=== PATIENT | male | born 1955 | race Caucasian/White ===

== ENCOUNTER 2017-12-13 12:08 | Emergency (ER) | payer MEDICARE ==
[~2017-12-13] VITALS: Ht 185.4 cm; Wt 68.2 kg
[~2017-12-13 12:08] MED LIST: ASPIRIN325 MG PO; HYDROCODONE-APA1 TAB PO; LIPITOR20 MG PO; SOMA350 MG PO
[2017-12-13 12:23] VITALS: Ht 185.4 cm; Wt 68.2 kg
[2017-12-13 12:35] LABS: APPEARANCE CLEAR (CLEAR); BILIRUBIN NEGATIVE (NEGATIVE); COLOR YELLOW (YELLOW); GLUCOSE NEGATIVE (NEGATIVE); KETONE NEGATIVE (NEGATIVE); NITRITE NEGATIVE (NEGATIVE); PROTEIN NEGATIVE (NEGATIVE); UROBILINOGEN NORMAL (NORMAL)
[2017-12-13 13:18] LABS: BASOPHILS 0.2 % (0-2); EOSINOPHILS 1.9 % (0-7); HEMATOCRIT 48.8 % (42.0-54.0); HEMOGLOBIN 17.2 g/dL (13.5-17.5); IMMATURE GRANULOCYTES 0.2 % (0-5); LYMPHOCYTES 44.1 % (15-50); MCH 29.8 pg (26.0-34.0); MCHC 35.2 g/dL (31.0-37.0); MCV 84.6 fL (80.0-100.0); MEAN PLATELET VOLUME 10.1 fL (7.4-10.4); MONOCYTES 13.9 % (2-11); NEUTROPHILS 39.7 % (40-80); PLATELET COUNT 194 10x3/uL (130-400); RBC 5.77 10x6/uL (4.20-6.10); RDW 13.5 % (11.5-14.5); WBC 12.3 10x3/uL (4.8-10.8)
[2017-12-13 13:32] LABS: ALBUMIN 3.8 g/dL (3.4-5.0); ANION GAP 12.1 mmol/L (8-16); BILIRUBIN - TOTAL 0.71 mg/dL (0.2-1.3); CALCIUM 9.2 mg/dL (8.5-10.1); CARBON DIOXIDE 24.3 mmol/L (21.0-32.0); CREATININE - SERUM 1.3 mg/dL (0.6-1.3); POTASSIUM - SERUM 4.4 mmol/L (3.5-5.1); PROTEIN - SERUM 7.5 g/dL (6.4-8.2)
[2017-12-13] MEDS ORDERED: NORCO 10-325 TA1 TAB PO (15:54)
[2017-12-13] MEDS ORDERED: ZOFRAN ODT4 MG/UDTAB PO (15:54)
[2017-12-13 16:00] VITALS: BP 123/63
== END 2017-12-13 16:01 | disposition home or self-care (01) ==
LOC: D.ER 12:08
PROVIDERS: Emergency Medicine
DX: A08.4 Viral intestinal infection, unspecified (principal); Z86.73 Personal history of transient ischemic attack (TIA), and cerebral infarction without residual deficits

== ENCOUNTER 2018-02-26 09:01 | Inpatient (IN) | payer MEDICARE ==
[~2018-02-26] VITALS: Ht 185.4 cm; Wt 70.3 kg
--- NOTE | ~2018-02-26 | MORECARE ---
CASE MANAGEMENT DISCHARGE SUMMARY PATIENT: CHARY FOSTER UNIT: [id number] ADM DATE: 02/26/18 AGE: 62 : 59 SEX: M ROOM/BED: D.2234 AUTHOR: MARYAN NICHOLE PHYSICIAN: REFERRING PHYSICIAN: JOSE MOON MD DATE OF SERVICE: 02/26/18 Discharge Plan Patient Name: CHARY FOSTER [facility] [facility] 1955 Planned Disposition: Anticipated Discharge Date: Discharge Date: Expected LOS: Initial Reviewer: [email or web address] Initial Review Date: 02/26/2018 Generated: 02/26/18 12:00 pm DCPIA - Discharge Planning Initial Assessment Updated by [email or web address]: Enriqueta Ivey on 02/26/18 11:00 am * Is the patient Alert and Oriented? Yes * PCP NONE * Pharmacy NONE * Preadmission Environment Home with Family * ADLs Independent * Equipment Cane Nebulizer Oxygen * Other Equipment STATES GETS O2 FROM [facility] * List name and contact numbers for known caregivers / representatives who currently or will assist patient after discharge: GILBERTO FOSTER, MOTHER IN LAW, DOESN'T KNOW NUMBER, CM FOUND IN CHART * Community resources currently utilized None * Has this patient been hospitalized within the prior 30 days at any hospital? No Patient Name: CHARY FOSTER Page [id number] at 1100 All edits/amendments must be made on the electronic document DICTATION DATE: 02/26/18 1100 STENCIL CUTTER MACHINE: KEVIN 02/26/18 1100 RPT#: [id number] DC DATE: STATUS: ADM IN [facility] [address] [place] [address] END OF REPORT
--- NOTE | ~2018-02-26 | MORECARE ---
CASE MANAGEMENT DISCHARGE SUMMARY PATIENT: CHARY FOSTER UNIT: [id number] ADM DATE: 02/26/18 AGE: 62 : 59 SEX: M ROOM/BED: D.2234 AUTHOR: MARYAN NICHOLE PHYSICIAN: REFERRING PHYSICIAN: JOSE MOON MD DATE OF SERVICE: 02/26/18 Discharge Plan Patient Name: CHARY FOSTER Facility: [facility]:[place] : 1955 Planned Disposition: Anticipated Discharge Date: Discharge Date: Expected LOS: Initial Reviewer: [email or web address] Initial Review Date: 02/26/2018 Generated: 02/26/18 12:10 pm DCP- Discharge Planning Updated by [email or web address]: Enriqueta Ivey on 02/26/18 10:[address] Patient Name: CHARY FOSTER Admission Status: ER Accout number: [id number] Admission Date: 02-26-2018 : 1955 Admission Diagnosis: Attending: JOSE MOON Current LOS: 1 Anticipated DC Date: Planned Disposition: Primary Insurance: [facility] MEDICARE SOLUTIONS Discharge Planning Comments: CM SPOKE WITH PATIENT ABOUT DC PLANNING/NEEDS. STATES PLANS TO DC TO HOME WHEN DISCHARGED. STATES DOESN'T KNOW OF ANY NEEDS YET AND WAS INDEPENDANT WITH ADL'S. STATES USES A CANE SOMETIMES. CM WILL FOLLOW AND ASSIST NEEDED WITH DC PLANNING/NEEDS. Sisal Operator: Enriqueta Ivey DCPIA - Discharge Planning Initial Assessment Updated by [email or web address]: Enriqueta Ivey on 02/26/18 11:00 am * Is the patient Alert and Oriented? Yes * PCP NONE * Pharmacy NONE * Preadmission Environment Home with Family * ADLs Independent * Equipment Cane Nebulizer Oxygen * Other Equipment STATES GETS O2 FROM [facility] * List name and contact numbers for known caregivers / representatives who currently or will assist patient after discharge: GILBERTO FOSTER, MOTHER IN LAW, DOESN'T KNOW NUMBER, CM FOUND IN CHART * Community resources currently utilized None * Has this patient been hospitalized within the prior 30 days at any hospital? No Last DP export: 02/26/18 10:00 a Patient Name: CHARY FOSTER Page [id number] at 1110 All edits/amendments must be made on the electronic document DICTATION DATE: 02/26/181108 MACHINE PULLER AND LASTER: KEVIN 02/26/181108 RPT#: [id number] DC DATE: STATUS: ADM IN [facility] [address] [place] [address] END OF REPORT
--- NOTE | ~2018-02-26 | MORECARE ---
CASE MANAGEMENT DISCHARGE SUMMARY PATIENT: CHARY FOSTER UNIT: [id number] ADM DATE: 02/26/18 AGE: 62 : 59 SEX: M ROOM/BED: D.2234 AUTHOR: MARYAN NICHOLE PHYSICIAN: REFERRING PHYSICIAN: JOSE MOON MD DATE OF SERVICE: 03/02/18 Discharge Plan Patient Name: CHARY FOSTER [facility]:[place] : 1955 Planned Disposition: Anticipated Discharge Date: Discharge Date: 02/28/2018 Expected LOS: 0 Initial Reviewer: [email or web address] Initial Review Date: 02/26/2018 Generated: 03/02/18 10:03 am DCP- Discharge Planning Updated by [email or web address]: Enriqueta Ivey on 02/26/18 10:[address] Patient Name: CHARY FOSTER Admission Status: ER Accout number: [id number] Admission Date: 02-26-2018 : 1955 Admission Diagnosis: Attending: JOSE MOON Current LOS: 1 Anticipated DC Date: Planned Disposition: Primary Insurance: [facility] MEDICARE SOLUTIONS Discharge Planning Comments: CM SPOKE WITH PATIENT ABOUT DC PLANNING/NEEDS. STATES PLANS TO DC TO HOME WHEN DISCHARGED. STATES DOESN'T KNOW OF ANY NEEDS YET AND WAS INDEPENDANT WITH ADL'S. STATES USES A CANE SOMETIMES. CM WILL FOLLOW AND ASSIST NEEDED WITH DC PLANNING/NEEDS. Track Sweeper: Enriqueta Ivey DCPIA - Discharge Planning Initial Assessment Updated by [email or web address]: Enriqueta Ivey on 02/26/18 11:00 am * Is the patient Alert and Oriented? Yes * PCP NONE * Pharmacy NONE * Preadmission Environment Home with Family * ADLs Independent * Equipment Cane Nebulizer Oxygen * Other Equipment [facility] * List name and contact numbers for known caregivers / representatives who currently or will assist patient after discharge: GILBERTO FOSTER, MOTHER IN LAW, DOESN'T KNOW NUMBER, CM FOUND IN CHART * Community resources currently utilized None * Has this patient been hospitalized within the prior 30 days at any hospital? No Last DP export: 02/26/18 10:10 a Patient Name: CHARY FOSTER Page [phone] at 0903 All edits/amendments must be made on the electronic document DICTATION DATE: 03/02/18902 CAM MAKER: KEVIN 03/02/18902 RPT#: [id number] DC DATE:02/28/18 STATUS: DIS IN [facility] [address] [place] [address] END OF REPORT
[~2018-02-26 09:01] MED LIST changes: +NORCO 10-325 TA1 TAB PO; +ZOFRAN ODT4 MG/UDTAB PO
[2018-02-26 10:02] LABS: INR 1.02 (0.85-1.17); PROTIME 12.9 SECONDS (11.6-15.0)
[2018-02-26 10:11] LABS: ALBUMIN 3.5 g/dL (3.4-5.0); ALKALINE PHOSPHATASE 75 U/L (46-116); ALT (SGPT) 17 U/L (10-68); BILIRUBIN - TOTAL 0.64 mg/dL (0.2-1.3); CALC OSMOLALITY 280 mosm/kg (275-300); CALCIUM 9.1 mg/dL (8.5-10.1); CARBON DIOXIDE 27.6 mmol/L (21.0-32.0); CHLORIDE - SERUM 104 mmol/L (98-107); CREATININE - SERUM 1.2 mg/dL (0.6-1.3); GLUCOSE 106 mg/dL (74-106); POTASSIUM - SERUM 3.9 mmol/L (3.5-5.1); PROTEIN - SERUM 7.1 g/dL (6.4-8.2); SODIUM 139 mmol/L (136-145); UREA NITROGEN 22 mg/dL (7-18); eGFR NON AFRICAN AMERICAN 66 mL/min (90-120)
[2018-02-26 10:15] LABS: CREATINE KINASE 37 UL (21-232); MAGNESIUM - SERUM 1.9 mg/dL (1.8-2.4)
[2018-02-26 10:21] LABS: TROPONIN-I < 0.017 ng/mL (0.000-0.060)
[2018-02-26 10:55] LABS: BASOPHILS 0.1 % (0-2); EOSINOPHILS 1.4 % (0-7); HEMOGLOBIN 15.9 g/dL (13.5-17.5); IMMATURE GRANULOCYTES 0.2 % (0-5); LYMPHOCYTES 39.2 % (15-50); MCH 29.4 pg (26.0-34.0); MCHC 34.6 g/dL (31.0-37.0); MONOCYTES 5.5 % (2-11); NEUTROPHILS 53.6 % (40-80); PLATELET COUNT 177 10x3/uL (130-400); RBC 5.41 10x6/uL (4.20-6.10); RDW 13.5 % (11.5-14.5); WBC 17.2 10x3/uL (4.8-10.8)
[2018-02-26 11:34] VITALS: BP 132/78; BMI 20.4
[2018-02-26 12:53] VITALS: BP 132/78
[2018-02-26 17:23] LABS: CHOL - HDL RATIO 3.4 ratio (2.3-4.9); LDL-HDL RATIO 1.9 ratio (1.5-3.5)
[2018-02-26 17:47] VITALS: BP 144/88
[2018-02-26 21:13] VITALS: BP 146/83
[2018-02-26 23:30] LABS: APPEARANCE CLEAR (CLEAR); COLOR YELLOW (YELLOW); NITRITE NEGATIVE (NEGATIVE); PROTEIN NEGATIVE (NEGATIVE); SPECIFIC GRAVITY 1.015 (1.005-1.020)
[2018-02-26 23:31] LABS: BILIRUBIN NEGATIVE (NEGATIVE); GLUCOSE NEGATIVE (NEGATIVE); KETONE SMALL mg/dL (NEGATIVE); UROBILINOGEN NORMAL (NORMAL)
[2018-02-27 00:27] VITALS: BP 127/76
[2018-02-27 04:50] VITALS: BP 112/75
[2018-02-27 06:08] LABS: BASOPHILS 0.2 % (0-2); EOSINOPHILS 2.6 % (0-7); HEMATOCRIT 44.1 % (42.0-54.0); IMMATURE GRANULOCYTES 0.3 % (0-5); LYMPHOCYTES 43.7 % (15-50); MCV 85.3 fL (80.0-100.0); MONOCYTES 7.3 % (2-11); NEUTROPHILS 45.9 % (40-80); PLATELET COUNT 161 10x3/uL (130-400); RBC 5.17 10x6/uL (4.20-6.10); RDW 13.6 % (11.5-14.5)
[2018-02-27 06:11] LABS: WBC 12.2 10x3/uL (4.8-10.8)
[2018-02-27 06:21] LABS: ANION GAP 10.6 mmol/L (8-16); CALCIUM 8.8 mg/dL (8.5-10.1); CARBON DIOXIDE 28.6 mmol/L (21.0-32.0); CREATININE - SERUM 1.2 mg/dL (0.6-1.3); POTASSIUM - SERUM 4.2 mmol/L (3.5-5.1)
[2018-02-27 08:45] VITALS: BP 121/73
[2018-02-27 10:49] VITALS: Ht 185.4 cm; Wt 70.3 kg
[2018-02-27 12:30] VITALS: BP 130/80
[2018-02-27 15:04] LABS: UDS - AMPHET NEGATIVE QUAL (NEGATIVE); UDS - BARB NEGATIVE QUAL (NEGATIVE); UDS - BENZO NEGATIVE QUAL (NEGATIVE); UDS - COCAINE POSITIVE QUAL (NEGATIVE); UDS - OPIATE POSITIVE QUAL (NEGATIVE); UDS - PCP NEGATIVE QUAL (NEGATIVE); UDS - THC NEGATIVE QUAL (NEGATIVE)
[2018-02-27 16:25] VITALS: BP 129/61
[2018-02-27 19:59] VITALS: BP 123/77
[2018-02-28 05:35] VITALS: BP 123/70
[2018-02-28 06:39] LABS: ANION GAP 10.5 mmol/L (8-16); CREATININE - SERUM 1.3 mg/dL (0.6-1.3); POTASSIUM - SERUM 4.5 mmol/L (3.5-5.1)
[2018-02-28 06:49] LABS: BASOPHILS 0.3 % (0-2); EOSINOPHILS 2.7 % (0-7); HEMATOCRIT 44.5 % (42.0-54.0); HEMOGLOBIN 15.3 g/dL (13.5-17.5); IMMATURE GRANULOCYTES 0.2 % (0-5); LYMPHOCYTES 49.6 % (15-50); MCHC 34.4 g/dL (31.0-37.0); MCV 84.3 fL (80.0-100.0); MEAN PLATELET VOLUME 10.1 fL (7.4-10.4); MONOCYTES 7.3 % (2-11); NEUTROPHILS 39.9 % (40-80); PLATELET COUNT 167 10x3/uL (130-400); RBC 5.28 10x6/uL (4.20-6.10); RDW 13.5 % (11.5-14.5); WBC 11.5 10x3/uL (4.8-10.8)
[2018-02-28 08:11] VITALS: BP 123/87
[2018-02-28 12:30] VITALS: BP 139/80
[2018-02-28] MEDS ORDERED: MIRALAX17 GM PO (13:07)
[2018-03-02 04:14] LABS: HEPATITIS C ANTIBODY 0.2 S/CO RAT (0.0-0.9)
== END 2018-02-28 15:17 | disposition home or self-care (01) | DRG 57 ==
LOC: D.ER 09:01 → D.EDHOLD 10:19 → D.MS 10:19
PROVIDERS: Emergency Medicine; Internal Medicine Nephrology
DX: G81.91 Hemiplegia, unspecified affecting right dominant side (principal); F17.213 Nicotine dependence, cigarettes, with withdrawal; F15.188 Other stimulant abuse with other stimulant-induced disorder; I10 Essential (primary) hypertension; I50.9 Heart failure, unspecified; J44.9 Chronic obstructive pulmonary disease, unspecified; Q85.00 Neurofibromatosis, unspecified